=== PATIENT | male | born 1950 | race Caucasian/White ===

== ENCOUNTER 2017-05-31 09:08 | Day surgery (SDC) | payer MEDICARE, OTHER ==
[~2017-05-31 09:08] MED LIST: ATENOLOL50 M1 PO; LOSARTAN POTASS1 TA3 PO; PRAVASTATIN SOD80 M1 PO; SYMBICORT1 AER IH; VENTOLIN H0.09 MG/Ac IH; WARFARIN SOD5 M1 PO; WARFARIN SODIU7.5 MG PO
--- NOTE | 2017-05-31 10:25 | CARDIOVASCULAR REPORT ---
Arterial Exam Indications: 442.0 Aneurysm of artery of upper extremity. 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 History: Risk factors: Prior angiography/angioplasty. One week post cath Right upper extremity arterial duplex. Duplex scan and Doppler flow study including spectral analysis, color and vann scale imaging. Patient status: Outpatient. CRITICAL FINDINGS - Reported to: kevan - Read back and verified. - 05/31/17 - 1015 - Yes Tables: (Report amended ) Electronically signed by: Dino Joshi [id number]
== END 2017-05-31 14:30 | disposition home or self-care (01) ==
LOC: CARDIO 09:08 → CATHLAB 09:08 → EDSTATUS 09:15 → CARDIO 09:15 → CATHLAB 14:30
DX: I25.10 Atherosclerotic heart disease of native coronary artery without angina pectoris (principal)